=== PATIENT | male | born 1995 | race Caucasian/White ===

== ENCOUNTER 2023-07-10 08:33 | Emergency (ER) | payer OTHER ==
[~2023-07-10] VITALS: Ht 170.1 cm; Wt 65.8 kg
[2023-07-10] MEDS ORDERED: HYDROXYZINE PAM25 M1 PO (08:45)
[2023-07-10] MEDS ORDERED: ESCITALOPRAM OX20 MG PO (08:45)
[2023-07-10] MEDS ORDERED: QUETIAPINE FUMA50 M1 PO (08:45)
[2023-07-10] MEDS ORDERED: SPIRONOLACTONE100 MG PO (08:46)
[2023-07-10] MEDS ORDERED: ESTRADIOL2 MG PO (08:46)
[2023-07-10] MEDS ORDERED: Amoxicillin/Clavulanate Pota 875 MG TAB PO ONE (09:05)
[2023-07-10] MEDS ORDERED: AMOX-CLAV 875-1 EACH PO (09:08)
== END 2023-07-10 09:19 | disposition home or self-care (01) ==
LOC: ED 08:33
DX: J02.9 Acute pharyngitis, unspecified (principal); F17.200 Nicotine dependence, unspecified, uncomplicated; Z88.5 Allergy status to narcotic agent